=== PATIENT | female | born 1980 | race Two or more races ===

== ENCOUNTER 2019-08-01 09:40 | Outpatient (CLI) | payer OTHER ==
--- NOTE | 2019-08-01 14:18 | MRI Report ---
Reason: RT KNEE PAIN Procedure Date: 08/01/2019 Accession Number: [id number] / [id number] Procedure: MRI - Knee RT W/O CPT Code: FULL RESULT: EXAM: RIGHT KNEE MRI WITHOUT CONTRAST EXAM DATE: 08/01/2019 10:13 AM. CLINICAL HISTORY: Right knee pain. COMPARISON: None. TECHNIQUE: Multiplanar, multisequence T1-weighted and fluid-sensitive sequences of the knee without contrast. Other: None. FINDINGS: Bones: Moderate spurring anterior aspect medial and lateral femoral condyles. Moderate spurring. Lateral tibial plateau. Spurring inferior patella. Articular Cartilage: Mild focal fluid signal and chondromalacia posterior aspect of lateral femoral condyle 5 mm x 6 mm. Severe chondromalacia lateral trochlear groove. Moderate chondromalacia inferior aspect lateral patellar facet. Medial Meniscus: The medial meniscus is intact. Lateral Meniscus: The lateral meniscus is intact. Cruciate Ligaments: The anterior and posterior cruciate ligaments are intact. Collateral Ligaments: The medial collateral and lateral collateral ligamentous structures are intact. Tendons: The quadriceps, patellar, semimembranosus, and popliteus tendons are unremarkable. Musculature: No edema or fatty atrophy. Other: Small fluid collection lateral patellar recess.No popliteal cyst. No loose bodies. The medial and lateral retinacula are intact. Edema is noted at the superior aspect infrapatellar fat pad. High position of the patella. IMPRESSION: 1. Negative for meniscus tear or internal derangement. 2. 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 3. Moderate tibiofemoral compartment osteoarthritis. Kellgren-Paul grade 2. RADIA
== END 2019-08-01 09:41 | disposition home or self-care (01) ==
LOC: DI 09:40
PROVIDERS: ATTEND Student in an Organized Health Care Education/Training Program
DX: S83.011A Lateral subluxation of right patella, initial encounter (principal); M17.11 Unilateral primary osteoarthritis, right knee

== ENCOUNTER 2021-11-14 09:17 | Outpatient (CLI) | payer OTHER ==
--- NOTE | 2021-11-14 11:53 | XRAY Report ---
PROCEDURE: Knee 4 View RT INDICATIONS: RIGHT KNEE PAIN TECHNIQUE: 4 views of the ) knee(s) were acquired. COMPARISON: None. FINDINGS: Bones: No fractures or dislocations. Moderate tricompartmental osteoarthritis in right knee is seen with joint space narrowing, subchondral sclerosis and marginal osteophyte formation. No suspicious leonela ny lesions. Soft tissues: Small suprapatellar joint effusion is noted. No suspicious soft tissue calcifications. IMPRESSION: Moderate tricompartmental osteoarthritis. No fracture or dislocation. Small joint effusi on. Reviewed by: Macario Brunson MD on 11/14/2021 11:52 AM PST Approved by: Macario Brunson MD on 11/14/2021 11:52 AM PST Station ID: [id number]
== END 2021-11-14 09:18 | disposition home or self-care (01) ==
LOC: DI.WOS 09:17
PROVIDERS: ATTEND Orthopaedic Surgery
DX: M17.11 Unilateral primary osteoarthritis, right knee (principal); M25.461 Effusion, right knee